=== PATIENT | female | born 2000 | race Native Hawaiian/Other Pacific Islander ===

== ENCOUNTER 2021-10-11 07:57 | Outpatient (CLI) | payer BC ==
[2021-10-11 08:19] LABS: PLATELET COUNT 288 K/uL (152-353)
[2021-10-11 08:46] LABS: POTASSIUM 3.9 mmol/L (3.6-5.2)
== END 2021-10-11 18:52 | disposition home or self-care (01) ==
LOC: LABW 07:57
PROVIDERS: ATTEND Internal Medicine
DX: G40.309 Generalized idiopathic epilepsy and epileptic syndromes, not intractable, without status epilepticus (principal)
CPT/HCPCS: 36415; 80053; 82542; 85027

== ENCOUNTER 2022-10-30 21:05 | Emergency (ER) | payer BC ==
[~2022-10-30] VITALS: Ht 157.5 cm; Wt 81.6 kg
[2022-10-30 21:33] LABS: POTASSIUM 3.6 mmol/L (3.6-5.2)
[2022-10-30 21:35] LABS: PLATELET COUNT 428 K/uL (152-353)
[2022-10-31 01:15] VITALS: BP 142/76; TEMP 98.6
== END 2022-10-31 01:15 | disposition home or self-care (01) ==
LOC: ED 21:05
PROVIDERS: Family Medicine
DX: R56.9 Unspecified convulsions (principal)
CPT/HCPCS: 80053; 82542; 83605; 85027; 93005; 96361; 96365; 96375; 99284; J1953; J2060